=== PATIENT | male | born 1960 | race Caucasian/White ===

== ENCOUNTER 2019-09-06 18:32 | Emergency (ER) | payer OTHER ==
[~2019-09-06] VITALS: Ht 193 cm; Wt 95.3 kg
[2019-09-06 18:50] VITALS: Ht 193 cm; Wt 95.3 kg
[2019-09-06 19:26] LABS: BASOPHIL % 0.2 % (0-2); PLATELET COUNT 204 x10^3mcL (130-400); RED CELL DISTRIBUTION WIDTH 15.5 % (11.5-14.5)
[2019-09-06 19:30] LABS: CALCIUM 8.8 mg/dL (8.5-10.1); CARBON DIOXIDE 28.8 mmol/L (21-32); CHLORIDE SERUM 100 mmol/L (98-107); CREATININE SERUM 1.2 mg/dL (0.7-1.3); GFR1 > 60 mL/min; GLUCOSE SERUM 114 mg/dL (74-106); POTASSIUM SERUM 4.4 mmol/L (3.5-5.1); SODIUM SERUM 136 mmol/L (136-145)
[2019-09-06 19:34] LABS: ALBUMIN 3.6 g/dL (3.4-5.0); ALKALINE PHOSPHATASE 71 U/L (46-116); ALT/SGPT 55 U/L (16-63); AST/SGOT 32 U/L (15-37); LIPASE 169 IU/L (73-393); TOTAL PROTEIN, SERUM 7.3 g/dL (6.4-8.2)
[2019-09-06 20:16] LABS: microscopic required? YES; urine erythrocyte NEGATIVE (NEGATIVE)
[2019-09-06] MEDS ORDERED: MOM PO (22:09)
[2019-09-06] MEDS ORDERED: APAP500 MG PO (22:09)
[2019-09-06] MEDS ORDERED: MP PO (22:10)
[2019-09-06] MEDS ORDERED: IBUPROFEN600 MG PO (22:10)
[2019-09-06] MEDS ORDERED: SEROQUEL25 MG PO (22:12)
[2019-09-06] MEDS ORDERED: ZYPREXA5 M1 PO (22:12)
[2019-09-06] MEDS ORDERED: TRAZODONE50 M1 PO (22:13)
[2019-09-06] MEDS ORDERED: ATA10 PO (22:13)
[2019-09-06] MEDS ORDERED: MULTI-VITAMINS1 TAB PO (22:14)
[2019-09-06] MEDS ORDERED: VITAMIN B150 MG PO (22:14)
[2019-09-06] MEDS ORDERED: NEURONTIN100 MG PO (22:15)
[2019-09-06] MEDS ORDERED: LOPRESSOR50 M1 PO (22:15)
[2019-09-06] MEDS ORDERED: ZYPREXA10 M1 PO (22:15)
[2019-09-06] MEDS ORDERED: SYNTHROID0.075 MG PO (22:16)
[2019-09-06] MEDS ORDERED: OMEPRAZOLE20 M4 PO (22:16)
[2019-09-07 04:51] VITALS: BP 103/55
== END 2019-09-07 04:51 | disposition short-term general hospital (02) ==
LOC: ED 18:32
PROVIDERS: Emergency Medicine
DX: A41.9 Sepsis, unspecified organism (principal); N39.0 Urinary tract infection, site not specified; J11.1 Influenza due to unidentified influenza virus with other respiratory manifestations; I10 Essential (primary) hypertension; G89.29 Other chronic pain; Z98.890 Other specified postprocedural states; Z88.8 Allergy status to other drugs, medicaments and biological substances
CPT/HCPCS: 87804; J0696; J1630; J1885; J2060; J7030; J7040; J7060